=== PATIENT | male | born 2000 | race Caucasian/White ===

== ENCOUNTER 2020-09-15 02:03 | Emergency (ER) | payer MEDICAID, OTHER ==
[~2020-09-15] VITALS: Ht 177.8 cm; Wt 56.8 kg
[2020-09-15] MEDS ORDERED: LEVE500T5 PO (02:23)
[2020-09-15 02:39] LABS: HEMATOCRIT 45.7 % (42.0-52.0); HEMOGLOBIN 15.8 g/dl (13.5-17.5); MEAN CORPUSCULAR HEMOGLOBIN 32.9 pg (27.0-33.0); MEAN CORPUSCULAR HGB CONC 34.6 g/dl (32.0-36.5); MEAN CORPUSCULAR VOLUME 95.2 fl (80.0-96.0); PLATELET COUNT, AUTOMATED 298 10^3/uL (150-450); WHITE BLOOD COUNT 7.8 10^3/uL (4.0-10.0)
[2020-09-15 03:10] LABS: AMPHETAMINES LEVEL URINE NEGATIVE (NEGATIVE); BARBITURATES URINE NEGATIVE (NEGATIVE); BENZODIAZEPINES URINE NEGATIVE (NEGATIVE); CANNABINOIDS URINE POSITIVE (NEGATIVE); COCAINE METABOLITE URINE NEGATIVE (NEGATIVE); METHADONE URINE NEGATIVE (NEGATIVE); OPIATES URINE NEGATIVE (NEGATIVE); PHENCYCLIDINE URINE NEGATIVE (NEGATIVE)
[2020-09-15 03:36] LABS: ACETAMINOPHEN LEVEL < 2.0 UG/ML (10.0-30.0); ALBUMIN 4.4 GM/DL (3.2-5.2); ALT/SGPT 16 U/L (12-78); BILIRUBIN,DIRECT 0.3 MG/DL (0.0-0.2); BILIRUBIN,TOTAL 1.4 MG/DL (0.2-1.0); BLOOD UREA NITROGEN 12 MG/DL (7-18); CALCIUM LEVEL 8.7 MG/DL (8.5-10.1); CARBON DIOXIDE LEVEL 23 MEQ/L (21-32); CHLORIDE LEVEL 114 MEQ/L (98-107); CREATININE FOR GFR 0.91 MG/DL (0.70-1.30); ETHYL ALCOHOL (ETHANOL) 0.235 % (0.000-0.010); GLOMERULAR FILTRATION RATE > 60.0 (>60); GLUCOSE, FASTING 93 MG/DL (70-100); POTASSIUM SERUM 4.5 MEQ/L (3.5-5.1); SALICYLATE LEVEL < 1.7 MG/DL (5.0-30.0); SODIUM LEVEL 143 MEQ/L (136-145); TOTAL PROTEIN 7.8 GM/DL (6.4-8.2)
[2020-09-15 12:12] VITALS: BP 137/74
== END 2020-09-15 12:13 | disposition home or self-care (01) ==
LOC: M ED 02:03
DX: F10.129 Alcohol abuse with intoxication, unspecified (principal); F17.200 Nicotine dependence, unspecified, uncomplicated

== ENCOUNTER 2021-04-27 17:13 | Inpatient (IN) | payer OTHER ==
[~2021-04-27] VITALS: Ht 177.8 cm; Wt 65.2 kg
[~2021-04-27 17:13] MED LIST: LEVE500T5 PO
[2021-04-27] MEDS ORDERED: LORazepam 2 MG TAB PO ONE (17:45)
[2021-04-27 18:10] LABS: AMPHETAMINES LEVEL URINE NEGATIVE (NEGATIVE); BARBITURATES URINE NEGATIVE (NEGATIVE); BENZODIAZEPINES URINE NEGATIVE (NEGATIVE); CANNABINOIDS URINE POSITIVE (NEGATIVE); COCAINE METABOLITE URINE NEGATIVE (NEGATIVE); METHADONE URINE NEGATIVE (NEGATIVE); OPIATES URINE NEGATIVE (NEGATIVE); PHENCYCLIDINE URINE NEGATIVE (NEGATIVE)
[2021-04-27 19:34] LABS: HEMATOCRIT 42.5 % (42.0-52.0); HEMOGLOBIN 14.8 g/dl (13.5-17.5); MEAN CORPUSCULAR HEMOGLOBIN 32.9 pg (27.0-33.0); MEAN CORPUSCULAR HGB CONC 34.8 g/dl (32.0-36.5); MEAN CORPUSCULAR VOLUME 94.4 fl (80.0-96.0); PLATELET COUNT, AUTOMATED 292 10^3/uL (150-450); WHITE BLOOD COUNT 8.5 10^3/uL (4.0-10.0)
[2021-04-27 20:13] LABS: ACETAMINOPHEN LEVEL < 2.0 UG/ML (10.0-30.0); ALBUMIN 4.3 GM/DL (3.2-5.2); ALT/SGPT 39 U/L (12-78); BILIRUBIN,DIRECT 0.3 MG/DL (0.0-0.2); BILIRUBIN,TOTAL 1.1 MG/DL (0.2-1.0); BLOOD UREA NITROGEN 10 MG/DL (7-18); CALCIUM LEVEL 9.2 MG/DL (8.5-10.1); CARBON DIOXIDE LEVEL 25 MEQ/L (21-32); CHLORIDE LEVEL 110 MEQ/L (98-107); CREATININE FOR GFR 0.89 MG/DL (0.70-1.30); ETHYL ALCOHOL (ETHANOL) 0.049 % (0.000-0.010); GLOMERULAR FILTRATION RATE > 60.0 (>60); GLUCOSE, FASTING 79 MG/DL (70-100); SALICYLATE LEVEL < 1.7 MG/DL (5.0-30.0); SODIUM LEVEL 143 MEQ/L (136-145); THYROID STIMULATING HORMONE 0.834 uIU/ML (0.358-3.740); TOTAL PROTEIN 8.1 GM/DL (6.4-8.2)
[2021-04-27] MEDS ORDERED: ACETAMINOPHEN TAB 650MG DOSE (2X325MG) PO PRN (22:35)
[2021-04-27] MEDS ORDERED: MAALOX 30 ML SUSP *UDC PO PRN (22:35)
[2021-04-27] MEDS ORDERED: MOM 30ML SUSPENSION UDC PO PRN (22:35)
[2021-04-28] MEDS ORDERED: LEVE750T5 PO (01:58)
[2021-04-28] MEDS ORDERED: HOME MED LIST COMPLETE! XX SCH (02:00)
[2021-04-28 02:15] VITALS: BP 136/70
[2021-04-28] MEDS: levETIRAcetam 250MG TABLET (KEPPRA) PO SCH ×3 (03:00→21:06)
[2021-04-28] MEDS: traZODone 50 MG TAB PO PRN ×2 (03:00→21:06)
[2021-04-28] MEDS: NICOTINE 21MG/24HR 1 EA TRANSDERMAL TD SCH (09:52)
[2021-04-28 17:40] VITALS: BP 151/81
[2021-04-29 06:02] VITALS: BP 144/75
[2021-04-29] MEDS ORDERED: hydrOXYzine 50 MG TAB PO PRN (08:05)
[2021-04-29] MEDS ORDERED: SERTRALINE HCL 25 MG TABLET PO ONE (08:05)
[2021-04-29] MEDS: NICOTINE 21MG/24HR 1 EA TRANSDERMAL TD SCH (08:30)
[2021-04-29] MEDS: levETIRAcetam 250MG TABLET (KEPPRA) PO SCH (08:30)
[2021-04-29] MEDS ORDERED: NICO21PAT TD (12:02)
[2021-04-29] MEDS ORDERED: SERT50TA29 PO (12:02)
[2021-04-30] MEDS ORDERED: SERTRALINE HCL 50 MG TAB PO SCH (09:00)
== END 2021-04-29 13:45 | disposition home or self-care (01) | DRG 751 ==
LOC: M ED 17:13 → M ED INP 17:14 → M PSY 04-28 02:15
PROVIDERS: ADMIT Psychiatry & Neurology Psychiatry; ATTEND Psychiatry & Neurology Psychiatry
DX: F32.1 Major depressive disorder, single episode, moderate (principal); U07.1 COVID-19; R45.851 Suicidal ideations; G40.909 Epilepsy, unspecified, not intractable, without status epilepticus; F40.10 Social phobia, unspecified; F17.290 Nicotine dependence, other tobacco product, uncomplicated; F10.20 Alcohol dependence, uncomplicated; Z51.81 Encounter for therapeutic drug level monitoring; Z79.899 Other long term (current) drug therapy

== ENCOUNTER 2023-03-21 06:48 | Day surgery (SDC) | payer OTHER ==
[~2023-03-21] VITALS: Ht 177.8 cm; Wt 64.2 kg
[~2023-03-21 06:48] MED LIST changes: +AMPICILLIN SOD/SULBACTAM SOD 3 GM in D5W MINI-BAG PLUS 100 ML IV ONE; +D-3-50003 PO; +HYDR50TA70 PO; +LEVE750T5 PO; +NICO21PAT TD; +PROP10TA56 PO; +SERT50TA29 PO; +ZOLO100T PO
[2023-03-21] MEDS ORDERED: LR 1,000 ML IV SCH (07:10)
[2023-03-21] MEDS ORDERED: LIDOCAINE 2% W/ EPINEPHRINE 1.7 ML DENTAL INJ As Ordered ONE (07:14)
[2023-03-21] MEDS ORDERED: LIDOCAINE 2% 100MG/5ML SDV (FOR ANES.) As Ordered ONE (07:49)
[2023-03-21] MEDS ORDERED: propofoL 200 MG/20 ML VIAL As Ordered ONE (07:49)
[2023-03-21] MEDS ORDERED: ONDANSETRON 4MG 2ML VIAL As Ordered ONE (07:49)
[2023-03-21] MEDS ORDERED: SUGAMMADEX SODIUM 500 MG/5 ML VIAL (BRIDION) As Ordered ONE (07:49)
[2023-03-21] MEDS ORDERED: ROCURONIUM BROMIDE 50MG/5ML VIAL As Ordered ONE (07:49)
[2023-03-21] MEDS ORDERED: MIDAZOLAM INJ 2MG/2ML VIAL As Ordered ONE (07:55)
[2023-03-21] MEDS ORDERED: fentaNYL 100 MCG/2 ML INJECTION As Ordered ONE (07:55)
[2023-03-21] MEDS ORDERED: ACETAMINOPHEN 1000MG 100ML IV BAG As Ordered ONE (09:15)
[2023-03-21] MEDS ORDERED: ONDANSETRON 4MG 2ML VIAL IV PRN (10:30)
[2023-03-21] MEDS ORDERED: MORPHINE 2 MG/ML 1ML VIAL IV PRN (10:30)
[2023-03-21] MEDS ORDERED: fentaNYL 100 MCG/2 ML INJECTION IV PRN (10:30)
[2023-03-21] MEDS ORDERED: oxyCODONE 5MG TAB PO PRN (10:30)
[2023-03-21 12:12] VITALS: BP 136/70; TEMP 98.2; O2SAT 97
== END 2023-03-21 12:41 | disposition home or self-care (01) ==
LOC: M SDC 06:48
PROVIDERS: ATTEND Dentist
DX: K08.89 Other specified disorders of teeth and supporting structures (principal); K21.9 Gastro-esophageal reflux disease without esophagitis; F41.9 Anxiety disorder, unspecified; F32.A Depression, unspecified; R56.9 Unspecified convulsions; Z79.899 Other long term (current) drug therapy; F17.219 Nicotine dependence, cigarettes, with unspecified nicotine-induced disorders
CPT/HCPCS: 88300; C9290; D7140; D7210; D7310; D9223; J0131; J1100; J2250; J2405; J3010